=== PATIENT | male | born 1995 | race African-American/Black ===

== ENCOUNTER 2021-09-13 17:20 | Emergency (ER) | payer SELFPAY | END 2021-09-13 17:59 | disposition home or self-care (01) | LOC: CSHERS 17:20 | DX: S62.613A Displaced fracture of proximal phalanx of left middle finger, initial encounter for closed fracture (principal); X50.9XXA Other and unspecified overexertion or strenuous movements or postures, initial encounter | CPT/HCPCS: 99283 ==

== ENCOUNTER 2022-02-23 04:21 | Emergency (ER) | payer SELFPAY ==
[2022-02-23] MEDS ORDERED: methylPREDNISolone Sod Succ/PF 125 MG/2 ML VIAL ONE (04:46)
[2022-02-23] MEDS ORDERED: diphenhydrAMINE 50 MG/ML VIAL ONE (04:46)
[2022-02-23] MEDS ORDERED: EPINEPHrine 1 MG/ML AMP ONE (04:46)
[2022-02-23] MEDS ORDERED: Famotidine/PF 20 mg/2ml Vial ONE (04:47)
== END 2022-02-23 09:00 | disposition home or self-care (01) ==
LOC: CSHERS 04:21
DX: L50.1 Idiopathic urticaria (principal)
CPT/HCPCS: 96372; 96374; 96375; J0171; J1200; J2930; S0028

== ENCOUNTER 2022-03-15 07:27 | Emergency (ER) | payer SELFPAY ==
[2022-03-15] MEDS ORDERED: Ketorolac Tromethamine 30 MG/ML VIAL ONE (08:33)
== END 2022-03-15 09:17 | disposition home or self-care (01) ==
LOC: CSHERS 07:27
DX: M94.0 Chondrocostal junction syndrome [Tietze] (principal)
CPT/HCPCS: 71045; 93005; 96372; J1885

== ENCOUNTER 2022-06-07 00:11 | Emergency (ER) | payer SELFPAY ==
[2022-06-07 01:45] LABS: Bilirubin 1+ (Negative); Blood, Urine Negative (Negative); Clarity Clear (Clear); Glucose, Urine (Dipstick) Normal (Negative); Ketone, Urine 5 mg/dL (Negative); Leukocyte Negative (Negative); Nitrite Negative (Negative); Protein, Urine (Dipstick) 15 mg/dl (Neg-Trace); Specific Gravity, Urine 1.025 (1.002-1.036)
[2022-06-08 17:11] LABS: Chlam.trachomatis by PCR,Urine Not Detected (NotDetected)
== END 2022-06-07 02:12 | disposition home or self-care (01) ==
LOC: CSHERS 00:11
DX: R30.0 Dysuria (principal)
CPT/HCPCS: 81003; 87491; 87591; 99283